=== PATIENT | male | born 2000 | race Caucasian/White ===

== ENCOUNTER 2024-10-30 10:30 | Emergency (ER) | payer MEDICARE, SELFPAY ==
[2024-10-30 10:50] VITALS: BP 173/76
--- NOTE | 2024-10-30 11:55 | ED.GENMED ---
History of Present Illness
General
Chief Complaint: Musculo-Skeletal Complaint
Time Seen by Provider: 10/30/24 11:44
History of Present Illness
History of Present Illness:
24-year-old male presents to the emergency department for evaluation of left chest pain that began while bench pressing, states he felt a pop and immediate weakness to the left chest. He was able to move his left arm with pain.
Past History
Past History
ED Past Medical History: None
ED Past Surgical History: None
Review of Systems
Review of Systems
Allergies reviewed?: Yes
All Other Systems: ROS reviewed and negative except as documented in HPI and ROS
Phy Exam
Physical Exam
Physical Exam:
GEN: Well appearing, NAD, WDWN
HEENT: Oral mucosa moist, no scleral icterus
Cardiac: Regular rate
Lung: No respiratory distress, no tachypnea
MSK: Significant swelling to the left pectoral muscle, left shoulder range of motion is normal however pain is noted with abduction and resisted adduction
Skin: Good color, no pallor or jaundice, no rashes
Neuro: AO x3, moves all extremities freely
Psych: Calm, cooperative
Course
Vital Signs
Initial and Last Documented VS:
Initial Vital Signs
Temp Pulse Resp BP Pulse Ox
98.8 F 64 17 173/76 100
10/30/24 10:50 10/30/24 10:50 10/30/24 10:50 10/30/24 10:50 10/30/24 10:50
Last Documented Vital Signs
Temp Pulse Resp BP Pulse Ox
98.8 F 64 17 173/76 100
10/30/24 10:50 10/30/24 10:50 10/30/24 10:50 10/30/24 10:50 10/30/24 11:57
MDM/Problems Addressed
MDM/Problems Addressed:
Exam consistent with pectoral rupture, will refer to orthopedics for further workup and management
*Pulse Oximetry
SaO2: 100
Oxygen Mode of Delivery: Room air
Patient hypoxic: no
*Critical Care Note
Total Time (30-74mins, 75-104mins- exclusive of procedures): Not Applicable
ED Attending Note
-
Portions of this chart may have been created with voice recognition software.� Occasional wrong word or��sound alike� substitutions may have occurred due to the inherent limitations of voice recognition software.
Discharge Plan
Departure
Patient Disposition: Home (Routine Discharge)
Date of Disposition: 10/30/24
Time of Disposition: 11:55
Patient with high blood pressure during this ER visit?: No
Discharge Problem:
Traumatic rupture of left pectoralis major tendon
Instructions: Muscle strain
Prescriptions:
No Action
No Meds [No Current Medications]
0
hydrocodone-acetaminophen 1 TABLET tablet
1 tab PO Q4HPRN PRN (Reason: pain) Qty: 10 0RF
Referrals:
Daniel Westbrook MD [Active, Orthopedics]
Activity Restrictions/Additional Instructions:
Ice the chest wall often
Take Tylenol ibuprofen for pain
Call orthopedics immediately for follow-up
Interventions
Interventions:
*Risk Screen - Suicide Last Done: 10/30/24 10:52
*General Assessment Last Done: 10/30/24 10:52
*Neglect/Abuse Screening Last Done: 10/30/24 10:52
*ED COVID-19 Vaccine History Last Done: 10/30/24 10:52
*Nursing Disposition Last Done: 10/30/24 12:00
ED-Musculoskeletal Assessment Last Done: 10/30/24 10:45
Discharge Date and Time
Discharge Date/Time: 10/30/24 12:00
Print Language: CONGOLESE
== END 2024-10-30 12:00 | disposition home or self-care (01) ==
LOC: EMR 10:30
PROVIDERS: EMERGENCY PHYSICIAN Emergency Medicine
DX: S29.011A Strain of muscle and tendon of front wall of thorax, initial encounter (principal); X58.XXXA Exposure to other specified factors, initial encounter
CPT/HCPCS: 99282